=== PATIENT | male | born 1980 | race Caucasian/White ===

== ENCOUNTER 2020-08-09 00:14 | Emergency (ER) | payer OTHER ==
[2020-08-09 01:06] VITALS: BP 149/87; PULSE 93; TEMP 97.1; BMI 25.7
== END 2020-08-09 08:38 | disposition home or self-care (01) ==
LOC: JER 00:14
DX: F10.10 Alcohol abuse, uncomplicated (principal)
CPT/HCPCS: 99283-25; 99285-25

== ENCOUNTER 2020-08-09 08:58 | Inpatient (IN) | payer OTHER ==
[2020-08-09 09:21] VITALS: BMI 25.2
[2020-08-09] MEDS ORDERED: IBUPROFEN 400 MG TABLET (FP) PO PRN (09:38)
[2020-08-09] MEDS ORDERED: NICOTINE POLACRILEX 2 MG GUM BUC PRN (09:38)
[2020-08-09] MEDS ORDERED: METHOCARBAMOL 500 MG TABLET PO PRN (09:38)
[2020-08-09] MEDS ORDERED: MAGNESIUM HYDROX 2400MG/30ML ORAL SUSPENSION 30 ML CUP PO PRN (09:38)
[2020-08-09] MEDS ORDERED: ACETAMINOPHEN 325 MG TABLET (FP) PO PRN ×2 (09:38)
[2020-08-09] MEDS ORDERED: BISMUTH SUBSALICYLATE 524 MG/30 ML UD PO PRN (09:38)
[2020-08-09] MEDS ORDERED: MENTHOL/PHENOL 1 EACH UD MM PRN (09:38)
[2020-08-09] MEDS ORDERED: MAG HYDROX/AL HYDROX/SIMETH 30 ML UNIT-DOSE CUP PO PRN (09:38)
[2020-08-09] MEDS ORDERED: ONDANSETRON *ODT* 4 MG TABLET SL PRN (09:38)
[2020-08-09] MEDS ORDERED: MAGNESIUM CITRATE 300 ML BOTTLE PO PRN (09:38)
[2020-08-09] MEDS: NICOTINE 21 MG/24 HOURS TOPICAL PATCH TD SCH (11:44)
[2020-08-09] MEDS: hydrOXYzine PAMOATE 25 MG CAPSULE (FP) PO SCH ×4 (11:44→23:33)
[2020-08-09] MEDS: diazePAM 5 MG TABLET PO SCH ×3 (11:44→23:33)
[2020-08-09] MEDS: PRENATAL VITAMINS W/ FOLIC ACID TABLET (FP) PO SCH (11:45)
[2020-08-09 15:33] LABS: HEMOGLOBIN 13.9 GM/dL (11.7-16.9); MCH 30.5 pg (25.7-33.7); MEAN CELL VOLUME 89.7 fl (80-96); MEAN PLT VOLUME 7.8 fl (7.5-11.1); PLATELET COUNT 275 K/MM3 (134-434); RBC 4.57 M/mm3 (4.00-5.60); RDW 13.4 % (11.9-15.9); WHITE BLOOD COUNT 4.8 K/mm3 (4.0-10.0)
[2020-08-09 15:39] LABS: BLOOD UREA NITROGEN 9.5 mg/dL (7-18); CALCIUM 9.3 mg/dL (8.5-10.1)
[2020-08-09 15:41] LABS: ALBUMIN 3.6 g/dl (3.4-5.0)
[2020-08-09 15:44] LABS: BILIRUBIN,TOTAL 0.3 mg/dL (0.2-1); TOT PROT 7.4 g/dl (6.4-8.2)
[2020-08-09 15:45] LABS: CREATININE 0.6 mg/dL (0.55-1.3)
[2020-08-09] MEDS: MELATONIN 5 MG TABLETS PO SCH (23:33)
[2020-08-09] MEDS: THIAMINE HCL 100 MG TABLET (FP) PO SCH (23:33)
[2020-08-10] MEDS: diazePAM 5 MG TABLET PO SCH ×4 (06:02→23:04)
[2020-08-10] MEDS: hydrOXYzine PAMOATE 25 MG CAPSULE (FP) PO SCH ×5 (06:03→23:04)
[2020-08-10] MEDS: NICOTINE 21 MG/24 HOURS TOPICAL PATCH TD SCH (10:22)
[2020-08-10] MEDS: PRENATAL VITAMINS W/ FOLIC ACID TABLET (FP) PO SCH (10:22)
[2020-08-10] MEDS: MELATONIN 5 MG TABLETS PO SCH (23:04)
[2020-08-10] MEDS: THIAMINE HCL 100 MG TABLET (FP) PO SCH (23:04)
[2020-08-11] MEDS: diazePAM 5 MG TABLET PO SCH ×3 (06:08→21:39)
[2020-08-11] MEDS: hydrOXYzine PAMOATE 25 MG CAPSULE (FP) PO SCH ×5 (06:09→21:40)
[2020-08-11] MEDS: NICOTINE 21 MG/24 HOURS TOPICAL PATCH TD SCH (10:58)
[2020-08-11] MEDS: PRENATAL VITAMINS W/ FOLIC ACID TABLET (FP) PO SCH (10:59)
[2020-08-11] MEDS: diazePAM 5 MG TABLET PO PRN ×2 (11:01→17:47)
[2020-08-11] MEDS: THIAMINE HCL 100 MG TABLET (FP) PO SCH (21:40)
[2020-08-11] MEDS: MELATONIN 5 MG TABLETS PO SCH (21:40)
[2020-08-12] MEDS: diazePAM 5 MG TABLET PO SCH ×2 (07:03→17:29)
[2020-08-12] MEDS: hydrOXYzine PAMOATE 25 MG CAPSULE (FP) PO SCH ×5 (07:04→23:25)
[2020-08-12] MEDS: NICOTINE 21 MG/24 HOURS TOPICAL PATCH TD SCH (11:17)
[2020-08-12] MEDS: PRENATAL VITAMINS W/ FOLIC ACID TABLET (FP) PO SCH (11:18)
[2020-08-12] MEDS: MELATONIN 5 MG TABLETS PO SCH (23:25)
[2020-08-12] MEDS: THIAMINE HCL 100 MG TABLET (FP) PO SCH (23:25)
[2020-08-13] MEDS: hydrOXYzine PAMOATE 25 MG CAPSULE (FP) PO SCH ×2 (05:51→11:07)
[2020-08-13] MEDS ORDERED: diazePAM 5 MG TABLET PO ONE (06:00)
[2020-08-13 09:09] VITALS: BP 135/69; PULSE 96; TEMP 97.5
[2020-08-13] MEDS: NICOTINE 21 MG/24 HOURS TOPICAL PATCH TD SCH (11:07)
[2020-08-13] MEDS: PRENATAL VITAMINS W/ FOLIC ACID TABLET (FP) PO SCH (11:07)
== END 2020-08-13 11:56 | disposition other institution (70) | DRG 773 ==
LOC: YASAS 08:58 → Y6N 10:58
PROVIDERS: ADMIT Allergy & Immunology; ATTEND Allergy & Immunology
PROC: HZ2ZZZZ Detoxification Services for Substance Abuse Treatment (ICD-10-PCS; principal; 2020-08-09)
DX: F13.231 Sedative, hypnotic or anxiolytic dependence with withdrawal delirium (principal); F11.20 Opioid dependence, uncomplicated; F15.20 Other stimulant dependence, uncomplicated; F17.210 Nicotine dependence, cigarettes, uncomplicated; F41.1 Generalized anxiety disorder
CPT/HCPCS: 36415; 80053; 85027; 86780; 93005; 93010; C9803; U0003; U0005

== ENCOUNTER 2020-08-13 12:02 | Inpatient (IN) | payer OTHER ==
[2020-08-13] MEDS ORDERED: MENTHOL/PHENOL 1 EACH UD MM PRN (13:49)
[2020-08-13] MEDS ORDERED: guaiFENesin 200 MG/10 ML 10 ML UNIT-DOSE CUPS PO PRN (13:49)
[2020-08-13] MEDS ORDERED: LOPERAMIDE HCL 2 MG CAPSULE PO PRN (13:49)
[2020-08-13] MEDS ORDERED: P-EPHED 60MG/TRIPROLIDI 2.5MG TABLET PO PRN (13:49)
[2020-08-13] MEDS ORDERED: MAGNESIUM CITRATE 300 ML BOTTLE PO PRN (13:49)
[2020-08-13] MEDS ORDERED: ACETAMINOPHEN 325 MG TABLET (FP) PO PRN (13:49)
[2020-08-13] MEDS: IBUPROFEN 400 MG TABLET (FP) PO PRN (16:50)
[2020-08-13] MEDS: MAG HYDROX/AL HYDROX/SIMETH 30 ML UNIT-DOSE CUP PO PRN (19:54)
[2020-08-13] MEDS: THIAMINE HCL 100 MG TABLET (FP) PO SCH (22:28)
[2020-08-13] MEDS: MELATONIN 5 MG TABLETS PO SCH (22:28)
[2020-08-14] MEDS: MAGNESIUM HYDROX 2400MG/30ML ORAL SUSPENSION 30 ML CUP PO PRN (07:34)
[2020-08-14] MEDS: NICOTINE 7 MG/24 HOURS TOPICAL PATCH TD SCH (09:39)
[2020-08-14] MEDS: PRENATAL VITAMINS W/ FOLIC ACID TABLET (FP) PO SCH (09:40)
[2020-08-14] MEDS ORDERED: OFLOXACIN 0.3% OTIC SOLUTION 5 ML BOTTLE AD ONE (10:36)
[2020-08-14] MEDS: ATOMOXETINE HCL 40 MG CAPSULE PO SCH (14:27)
[2020-08-14] MEDS: IBUPROFEN 400 MG TABLET (FP) PO PRN (16:43)
[2020-08-14] MEDS: MAG HYDROX/AL HYDROX/SIMETH 30 ML UNIT-DOSE CUP PO PRN (19:43)
[2020-08-14] MEDS: MELATONIN 5 MG TABLETS PO SCH (22:40)
[2020-08-14] MEDS: THIAMINE HCL 100 MG TABLET (FP) PO SCH (22:40)
[2020-08-15] MEDS: ATOMOXETINE HCL 40 MG CAPSULE PO SCH (10:09)
[2020-08-15] MEDS: PRENATAL VITAMINS W/ FOLIC ACID TABLET (FP) PO SCH (10:09)
[2020-08-15] MEDS: NICOTINE 7 MG/24 HOURS TOPICAL PATCH TD SCH (10:10)
[2020-08-15] MEDS: NICOTINE POLACRILEX 2 MG GUM BUC PRN (11:51)
[2020-08-15] MEDS: MAG HYDROX/AL HYDROX/SIMETH 30 ML UNIT-DOSE CUP PO PRN (17:13)
[2020-08-15] MEDS: MELATONIN 5 MG TABLETS PO SCH (23:43)
[2020-08-15] MEDS: THIAMINE HCL 100 MG TABLET (FP) PO SCH (23:43)
[2020-08-16] MEDS: ATOMOXETINE HCL 40 MG CAPSULE PO SCH (10:31)
[2020-08-16] MEDS: PRENATAL VITAMINS W/ FOLIC ACID TABLET (FP) PO SCH (10:32)
[2020-08-16] MEDS: NICOTINE 7 MG/24 HOURS TOPICAL PATCH TD SCH (10:32)
[2020-08-16] MEDS: NICOTINE POLACRILEX 2 MG GUM BUC PRN ×3 (10:33→16:59)
[2020-08-16] MEDS ORDERED: ATOMOXETINE HCL 40 MG CAPSULE PO SCH ×2 (11:38→11:50)
[2020-08-16] MEDS: MAG HYDROX/AL HYDROX/SIMETH 30 ML UNIT-DOSE CUP PO PRN (20:20)
[2020-08-16] MEDS: THIAMINE HCL 100 MG TABLET (FP) PO SCH (22:41)
[2020-08-16] MEDS: MELATONIN 5 MG TABLETS PO SCH (22:41)
[2020-08-17] MEDS: ATOMOXETINE HCL 40 MG CAPSULE PO SCH (09:23)
[2020-08-17] MEDS: PRENATAL VITAMINS W/ FOLIC ACID TABLET (FP) PO SCH (09:23)
[2020-08-17] MEDS: NICOTINE 7 MG/24 HOURS TOPICAL PATCH TD SCH (09:23)
[2020-08-17] MEDS ORDERED: ATOMOXETINE HCL PO SCH (10:00)
[2020-08-17] MEDS: NICOTINE POLACRILEX 2 MG GUM BUC PRN ×3 (11:20→15:59)
[2020-08-17] MEDS: MAGNESIUM HYDROX 2400MG/30ML ORAL SUSPENSION 30 ML CUP PO PRN (15:06)
[2020-08-17] MEDS: IBUPROFEN 400 MG TABLET (FP) PO PRN (19:13)
[2020-08-17] MEDS: THIAMINE HCL 100 MG TABLET (FP) PO SCH (21:43)
[2020-08-17] MEDS: MELATONIN 5 MG TABLETS PO SCH (21:43)
[2020-08-18] MEDS: MAG HYDROX/AL HYDROX/SIMETH 30 ML UNIT-DOSE CUP PO PRN ×2 (03:20→18:30)
[2020-08-18] MEDS: NICOTINE 7 MG/24 HOURS TOPICAL PATCH TD SCH (09:30)
[2020-08-18] MEDS: ATOMOXETINE HCL 40 MG CAPSULE PO SCH (09:30)
[2020-08-18] MEDS: PRENATAL VITAMINS W/ FOLIC ACID TABLET (FP) PO SCH (09:30)
[2020-08-18] MEDS: NICOTINE POLACRILEX 2 MG GUM BUC PRN ×2 (09:30→16:36)
[2020-08-18] MEDS: IBUPROFEN 400 MG TABLET (FP) PO PRN (18:30)
[2020-08-18] MEDS: MELATONIN 5 MG TABLETS PO SCH (21:33)
[2020-08-18] MEDS: THIAMINE HCL 100 MG TABLET (FP) PO SCH (21:34)
[2020-08-19] MEDS: NICOTINE 7 MG/24 HOURS TOPICAL PATCH TD SCH (09:37)
[2020-08-19] MEDS: PRENATAL VITAMINS W/ FOLIC ACID TABLET (FP) PO SCH (09:37)
[2020-08-19] MEDS: ATOMOXETINE HCL 40 MG CAPSULE PO SCH (09:37)
[2020-08-19] MEDS: NICOTINE POLACRILEX 2 MG GUM BUC PRN (09:38)
[2020-08-19] MEDS ORDERED: PANTOPRAZOLE 20 MG TABLET PO ONE (14:22)
[2020-08-19] MEDS: MAG HYDROX/AL HYDROX/SIMETH 30 ML UNIT-DOSE CUP PO PRN ×2 (14:23→21:05)
[2020-08-19] MEDS: NICOTINE 14 MG/24 HOURS TOPICAL PATCH TD SCH (14:38)
[2020-08-19] MEDS: THIAMINE HCL 100 MG TABLET (FP) PO SCH (21:04)
[2020-08-19] MEDS: MELATONIN 5 MG TABLETS PO SCH (21:04)
[2020-08-20] MEDS: NICOTINE 14 MG/24 HOURS TOPICAL PATCH TD SCH (09:28)
[2020-08-20] MEDS: PRENATAL VITAMINS W/ FOLIC ACID TABLET (FP) PO SCH (09:28)
[2020-08-20] MEDS: ATOMOXETINE HCL PO SCH (09:28)
[2020-08-20] MEDS: PANTOPRAZOLE 20 MG TABLET PO SCH (09:28)
[2020-08-20] MEDS: NICOTINE POLACRILEX 4 MG GUM BUC PRN ×2 (13:10→17:48)
[2020-08-20] MEDS: hydrOXYzine PAMOATE 50 MG CAPSULE (FP) PO PRN (15:43)
[2020-08-20] MEDS: THIAMINE HCL 100 MG TABLET (FP) PO SCH (21:31)
[2020-08-20] MEDS: MELATONIN 5 MG TABLETS PO SCH (21:31)
[2020-08-21] MEDS: NICOTINE POLACRILEX 4 MG GUM BUC PRN ×4 (09:04→18:52)
[2020-08-21] MEDS: NICOTINE 14 MG/24 HOURS TOPICAL PATCH TD SCH (10:01)
[2020-08-21] MEDS: hydrOXYzine PAMOATE 50 MG CAPSULE (FP) PO PRN ×3 (10:01→21:05)
[2020-08-21] MEDS: PANTOPRAZOLE 20 MG TABLET PO SCH (10:01)
[2020-08-21] MEDS: PRENATAL VITAMINS W/ FOLIC ACID TABLET (FP) PO SCH (10:02)
[2020-08-21] MEDS: ATOMOXETINE HCL PO SCH (10:03)
[2020-08-21] MEDS: THIAMINE HCL 100 MG TABLET (FP) PO SCH (21:05)
[2020-08-21] MEDS: MELATONIN 5 MG TABLETS PO SCH (21:05)
[2020-08-22 06:21] VITALS: BP 99/65; PULSE 74; TEMP 97.7
[2020-08-22] MEDS: NICOTINE POLACRILEX 4 MG GUM BUC PRN (08:05)
[2020-08-22] MEDS: PRENATAL VITAMINS W/ FOLIC ACID TABLET (FP) PO SCH (09:01)
[2020-08-22] MEDS: ATOMOXETINE HCL PO SCH (09:01)
[2020-08-22] MEDS: PANTOPRAZOLE 20 MG TABLET PO SCH (09:01)
[2020-08-22] MEDS: hydrOXYzine PAMOATE 50 MG CAPSULE (FP) PO PRN (09:02)
[2020-08-22] MEDS: NICOTINE 14 MG/24 HOURS TOPICAL PATCH TD SCH (09:02)
== END 2020-08-22 09:45 | disposition home or self-care (01) | DRG 772 ==
LOC: YASAS 12:02 → Y3W 12:04
PROVIDERS: ADMIT Allergy & Immunology; ATTEND Allergy & Immunology
PROC: HZ42ZZZ Group Counseling for Substance Abuse Treatment, Cognitive-Behavioral (ICD-10-PCS; principal; 2020-08-13)
DX: F11.20 Opioid dependence, uncomplicated (principal); F13.20 Sedative, hypnotic or anxiolytic dependence, uncomplicated; F15.20 Other stimulant dependence, uncomplicated; F19.282 Other psychoactive substance dependence with psychoactive substance-induced sleep disorder; F19.280 Other psychoactive substance dependence with psychoactive substance-induced anxiety disorder; F19.24 Other psychoactive substance dependence with psychoactive substance-induced mood disorder; H92.03 Otalgia, bilateral; Z86.59 Personal history of other mental and behavioral disorders
CPT/HCPCS: C9803; U0003; U0005

== ENCOUNTER 2020-10-20 08:46 | Inpatient (IN) | payer OTHER ==
[2020-10-20 09:24] VITALS: BMI 25.2
[2020-10-20] MEDS ORDERED: BISMUTH SUBSALICYLATE 524 MG/30 ML PO PRN (10:10)
[2020-10-20] MEDS ORDERED: cloNIDine HCL 0.1 MG TABLET PO PRN (10:10)
[2020-10-20] MEDS ORDERED: IBUPROFEN 400 MG TABLET (FP) PO PRN (10:10)
[2020-10-20] MEDS ORDERED: ONDANSETRON *ODT* 4 MG TABLET SL PRN (10:10)
[2020-10-20] MEDS ORDERED: MAGNESIUM CITRATE 300 ML BOTTLE PO PRN (10:10)
[2020-10-20] MEDS ORDERED: MAGNESIUM HYDROX 2400MG/30ML ORAL SUSPENSION 30 ML CUP PO PRN (10:10)
[2020-10-20] MEDS ORDERED: METHOCARBAMOL 500 MG TABLET PO PRN (10:10)
[2020-10-20] MEDS ORDERED: ACETAMINOPHEN 325 MG TABLET (FP) PO PRN ×2 (10:10)
[2020-10-20] MEDS ORDERED: MAG HYDROX/AL HYDROX/SIMETH 30 ML UNIT-DOSE CUP PO PRN (10:10)
[2020-10-20] MEDS ORDERED: MENTHOL/PHENOL 1 EACH UD MM PRN (10:10)
[2020-10-20] MEDS ORDERED: METHADONE HCL 10 MG TABLET (FOR DETOX USE ONLY) ONE (11:04)
[2020-10-20] MEDS ORDERED: METHADONE HCL 10 MG TABLET (FOR DETOX USE ONLY) PO ONE (11:15)
[2020-10-20] MEDS: BACITRACIN 15 GM TUBE TOPICAL OINTMENT TP SCH ×2 (13:57→22:46)
[2020-10-20] MEDS: AMOXICILLIN 500 MG CAPSULE (FP) PO SCH ×2 (14:30→22:46)
[2020-10-20] MEDS: hydrOXYzine PAMOATE 25 MG CAPSULE (FP) PO SCH ×3 (14:30→22:46)
[2020-10-20] MEDS: NICOTINE POLACRILEX 2 MG GUM BUC PRN (14:31)
[2020-10-20] MEDS: MELATONIN 5 MG TABLETS PO SCH (22:46)
[2020-10-20] MEDS: THIAMINE HCL 100 MG TABLET (FP) PO SCH (22:47)
[2020-10-21] MEDS: AMOXICILLIN 500 MG CAPSULE (FP) PO SCH ×3 (06:12→22:17)
[2020-10-21] MEDS: hydrOXYzine PAMOATE 25 MG CAPSULE (FP) PO SCH ×5 (06:12→22:18)
[2020-10-21] MEDS ORDERED: METHADONE HCL 5 MG TABLET (FOR DETOX USE ONLY) ONE (09:05)
[2020-10-21] MEDS ORDERED: METHADONE HCL 10 MG TABLET (FOR DETOX USE ONLY) ONE (09:05)
[2020-10-21] MEDS ORDERED: METHADONE (DETOX) 20 MG, METHADONE (DETOX) 5 MG PO ONE (10:00)
[2020-10-21 10:18] LABS: ALBUMIN 3.2 g/dl (3.4-5.0); BLOOD UREA NITROGEN 5.2 mg/dL (7-18); CALCIUM 8.5 mg/dL (8.5-10.1)
[2020-10-21] MEDS: PRENATAL VITAMINS W/ FOLIC ACID TABLET (FP) PO SCH (10:20)
[2020-10-21] MEDS: BACITRACIN 15 GM TUBE TOPICAL OINTMENT TP SCH ×2 (10:20→22:18)
[2020-10-21 10:23] LABS: BILIRUBIN,TOTAL 0.3 mg/dL (0.2-1); CREATININE 0.7 mg/dL (0.55-1.3); TOT PROT 6.5 g/dl (6.4-8.2)
[2020-10-21 10:27] LABS: HEMATOCRIT 37.5 % (35.4-49); HEMOGLOBIN 12.9 GM/dL (11.7-16.9); MCH 30.7 pg (25.7-33.7); MCHC 34.3 g/dl (32.0-35.9); MEAN CELL VOLUME 89.3 fl (80-96); MEAN PLT VOLUME 7.6 fl (7.5-11.1); PLATELET COUNT 240 K/MM3 (134-434); RDW 12.8 % (11.9-15.9); WHITE BLOOD COUNT 5.9 K/mm3 (4.0-10.0)
[2020-10-21] MEDS: NICOTINE POLACRILEX 2 MG GUM BUC PRN ×4 (15:10→22:19)
[2020-10-21] MEDS: NICOTINE 21 MG/24 HOURS TOPICAL PATCH TD SCH (17:40)
[2020-10-21] MEDS: MELATONIN 5 MG TABLETS PO SCH (22:17)
[2020-10-21] MEDS: THIAMINE HCL 100 MG TABLET (FP) PO SCH (22:17)
[2020-10-22] MEDS: hydrOXYzine PAMOATE 25 MG CAPSULE (FP) PO SCH ×5 (05:51→22:32)
[2020-10-22] MEDS: AMOXICILLIN 500 MG CAPSULE (FP) PO SCH ×3 (05:52→22:32)
[2020-10-22] MEDS ORDERED: METHADONE HCL 10 MG TABLET (FOR DETOX USE ONLY) PO ONE (10:00)
[2020-10-22] MEDS: PRENATAL VITAMINS W/ FOLIC ACID TABLET (FP) PO SCH (10:53)
[2020-10-22] MEDS: BACITRACIN 15 GM TUBE TOPICAL OINTMENT TP SCH ×2 (10:53→22:33)
[2020-10-22] MEDS: NICOTINE 21 MG/24 HOURS TOPICAL PATCH TD SCH (10:53)
[2020-10-22] MEDS ORDERED: MASKS NR ONE (15:24)
[2020-10-22] MEDS: NICOTINE POLACRILEX 2 MG GUM BUC PRN ×2 (15:38→18:15)
[2020-10-22] MEDS: THIAMINE HCL 100 MG TABLET (FP) PO SCH (22:32)
[2020-10-22] MEDS: MELATONIN 5 MG TABLETS PO SCH (22:32)
[2020-10-23] MEDS: hydrOXYzine PAMOATE 25 MG CAPSULE (FP) PO SCH ×5 (06:35→22:24)
[2020-10-23] MEDS: AMOXICILLIN 500 MG CAPSULE (FP) PO SCH ×3 (06:35→22:22)
[2020-10-23] MEDS ORDERED: METHADONE HCL 5 MG TABLET (FOR DETOX USE ONLY) ONE (08:52)
[2020-10-23] MEDS ORDERED: METHADONE HCL 10 MG TABLET (FOR DETOX USE ONLY) ONE (08:52)
[2020-10-23] MEDS ORDERED: METHADONE (DETOX) 10 MG, METHADONE (DETOX) 5 MG PO ONE (10:00)
[2020-10-23] MEDS: PRENATAL VITAMINS W/ FOLIC ACID TABLET (FP) PO SCH (10:29)
[2020-10-23] MEDS: NICOTINE 21 MG/24 HOURS TOPICAL PATCH TD SCH (10:29)
[2020-10-23] MEDS: BACITRACIN 15 GM TUBE TOPICAL OINTMENT TP SCH ×2 (10:31→22:22)
[2020-10-23] MEDS: NICOTINE POLACRILEX 2 MG GUM BUC PRN ×5 (13:15→22:23)
[2020-10-23] MEDS: MELATONIN 5 MG TABLETS PO SCH (22:22)
[2020-10-23] MEDS: THIAMINE HCL 100 MG TABLET (FP) PO SCH (22:22)
[2020-10-24] MEDS: AMOXICILLIN 500 MG CAPSULE (FP) PO SCH ×3 (06:30→21:01)
[2020-10-24] MEDS: hydrOXYzine PAMOATE 25 MG CAPSULE (FP) PO SCH ×5 (06:31→21:03)
[2020-10-24] MEDS ORDERED: METHADONE HCL 10 MG TABLET (FOR DETOX USE ONLY) PO ONE (10:00)
[2020-10-24] MEDS: NICOTINE 21 MG/24 HOURS TOPICAL PATCH TD SCH (10:34)
[2020-10-24] MEDS: PRENATAL VITAMINS W/ FOLIC ACID TABLET (FP) PO SCH (10:34)
[2020-10-24] MEDS: BACITRACIN 15 GM TUBE TOPICAL OINTMENT TP SCH ×2 (10:37→21:03)
[2020-10-24] MEDS: NICOTINE POLACRILEX 2 MG GUM BUC PRN ×4 (13:25→19:47)
[2020-10-24] MEDS ORDERED: MASKS NR ONE (14:05)
[2020-10-24] MEDS: THIAMINE HCL 100 MG TABLET (FP) PO SCH (21:01)
[2020-10-24] MEDS: MELATONIN 5 MG TABLETS PO SCH (21:02)
[2020-10-25] MEDS: hydrOXYzine PAMOATE 25 MG CAPSULE (FP) PO SCH (05:43)
[2020-10-25] MEDS: AMOXICILLIN 500 MG CAPSULE (FP) PO SCH (05:43)
[2020-10-25] MEDS ORDERED: METHADONE HCL 5 MG TABLET (FOR DETOX USE ONLY) PO ONE (06:00)
[2020-10-25 06:12] VITALS: BP 96/64; PULSE 61; TEMP 96.9
== END 2020-10-25 07:38 | disposition home or self-care (01) | DRG 773 ==
LOC: YASAS 08:46 → Y3N 10:41
PROVIDERS: ADMIT Allergy & Immunology; ATTEND Allergy & Immunology
PROC: HZ2ZZZZ Detoxification Services for Substance Abuse Treatment (ICD-10-PCS; principal; 2020-10-20)
DX: F11.23 Opioid dependence with withdrawal (principal); F15.20 Other stimulant dependence, uncomplicated; F17.210 Nicotine dependence, cigarettes, uncomplicated; F31.9 Bipolar disorder, unspecified; F41.9 Anxiety disorder, unspecified; B18.2 Chronic viral hepatitis C; G47.00 Insomnia, unspecified; Z56.0 Unemployment, unspecified; Z59.0 Homelessness; S01.312D Laceration without foreign body of left ear, subsequent encounter; X58.XXXD Exposure to other specified factors, subsequent encounter
CPT/HCPCS: 36415; 80053; 85027; 86780; C9803; U0003; U0005